=== PATIENT | female | born 1990 | race Caucasian/White ===

== ENCOUNTER → 2022-09-04 19:06 | Outpatient (BNVA) | payer OTHER, SELFPAY | PROVIDERS: Visit Provider Family Medicine | DX: R50.9 Fever, unspecified (principal); R05.9 Cough, unspecified | CPT/HCPCS: 87400 ==

== ENCOUNTER → 2023-10-28 11:41 | Outpatient (BNVA) | payer OTHER, SELFPAY | PROVIDERS: Visit Provider Nurse Practitioner | DX: R05.9 Cough, unspecified (principal) | CPT/HCPCS: 87400 ==

== ENCOUNTER 2025-06-19 09:18 | Outpatient (RCR) | payer OTHER, SELFPAY | END 2025-07-07 23:59 | disposition home or self-care (01) | LOC: SPT 09:18 | PROVIDERS: Visit Provider Orthopaedic Surgery | DX: M25.561 Pain in right knee (principal) | CPT/HCPCS: 97110; 97161 ==

== ENCOUNTER 2025-07-08 05:00 | Outpatient (RCR) | payer OTHER, SELFPAY | END 2025-08-06 23:59 | disposition home or self-care (01) | LOC: SPT 05:00 | PROVIDERS: Visit Provider Orthopaedic Surgery | DX: M25.561 Pain in right knee (principal) | CPT/HCPCS: 97110 ==